=== PATIENT | female | born 1960 | race Caucasian/White ===

== ENCOUNTER → 2017-01-16 | Day surgery (SDC) | payer OTHER ==
[~2017-01-16] MED LIST: ACETAMINOPHEN 1000 MG/100 ML VIAL IV ONE; ALBU1AER INH; BENZ100 PO; EPINEPHrine HCL (1:1000) 1 MG/ML VIAL ONE; KETOROLAC TROMETHAMINE 30 MG/ML (IVP) VIAL ONE; LIDOCAINE HCL 1% PF 30 ML VIAL ONE; MEPERIDINE HCL 25 MG/ML VIAL ONE; MIDAZOLAM HCL 2 MG/2 ML VIAL ONE; MORPHINE SULFATE 4 MG/ML INJ ONE; ONDANSETRON HCL 4 MG/2 ML VIAL IV PUSH ONE; PRED20 PO; PROPOFOL 200 MG/20 ML AMP IV ONE; SODIUM CHLOR 0.9% 250 ML BAG IV ONE; VANCOMYCIN 500 MG VIAL ONE; ZITH250T PO
--- NOTE | 2017-01-16 10:56 | TN ---
cc: CHUY MICHAELS M.D. DATE OF SURGERY: 01/16/2017 PREOPERATIVE DIAGNOSIS Lipodystrophy of torso. POSTOPERATIVE DIAGNOSIS Lipodystrophy of torso. PROCEDURE Slim lipo. SURGEON Chuy Michaels MD ANESTHESIA LMA general. ESTIMATED BLOOD LOSS Minimal. COMPLICATIONS None. I&O'S 2380 in, 2450 out, total energy 60,000 joules per square centimeters. PROCEDURE She was properly consented, marked, anesthetized. The skin was sterilized with Betadine solution and utilizing tulip draping system sterile draping was applied. Puncture wounds were done utilizing 11 blade and tumescent fluid was infiltrated. ___ was as follows. In 1000 ccs of normal saline 30 ccs of 1% lidocaine plain was mixed with 1 cc of epinephrine 1:1000. After proper tumescent the energy was delivered 2020 for a total of 60,000 joules, of those 40,000 was in anterior abdomen, 10,000 for flanks and back. Suction food and beverage assistant was carried out utilizing ___ reciprocating cannula system a 3.5 mm ___ with 2.5 mm cannula. Each and every one of the puncture wounds were closed utilizing 5-0 Chromic suture and Steri-Strips applied and abdominal binder was applied thereafter. Overall, the patient tolerated the procedure well. She was awakened, extubated and transferred back to postoperative care in stable condition. No complications were appreciated. The patient tolerated the procedure well. MD JOHNNY Anderson/CARLOZ /10:21 AM /10:34 AM KATHRYN
--- NOTE | 2017-01-16 11:46 | TH ---
cc: ATIYA RINGO Date: 01/16/2017 DATE OF 1960 PROCEDURE TO BE PERFORMED Slim lipo to the torso. HISTORY OF PRESENT ILLNESS A 56-year-old female who wishes body contouring. She is a healthy individual. She did have a sinus surgery in the past. Otherwise, takes no medications. ALLERGIES She is allergic to penicillin. HABITS Her habits are bening. REVIEW OF SYSTEMS Other than the patient needing reading glasses for sight correction and has no evidence of other problems. PHYSICAL EXAMINATION CONSTITUTIONAL: General appearance. The patient is a well-developed female in no acute distress. Body habitus is within normal limits. There appear to be no deformities. Appears to have attention to grooming. HEENT: Eyes Conjunctivae and lids are within normal anatomical limits. The pupils are reactive to light and accommodation, size, and symmetry. There is no evidence of exudate, hemorrhage, or vessel change. Ears, mouth, nose, and throat The external inspection of the ears and nose fails to demonstrate any pathology, scars, lesions, or masses. Nasal mucosa, septum, and turbinates appear to be well hydrated as well as the lips and gums. No evidence of masses in the hypopharynx or submental area. RESPIRATORY: The patient shows no evidence of intercostal refractions. Otherwise, lungs are clear to auscultation without any abnormal sounds or rubs. CARDIOVASCULAR: The patient has a normal heart rate and rhythm. There is no evidence of noticed carotid bruits. Femoral pulses and pedal pulses in extremities are also within normal limits. GASTROINTESTINAL/ABDOMEN: Soft with no evidence of masses or tenderness. Unable to palpate the liver or spleen. No evidence of hernia. MUSCULOSKELETAL: Appears to be reasonable range of motion on the head, neck, spine, ribs, pelvis, right upper extremity, left upper extremity, right lower extremity, and left lower extremity. The muscle strength and tone appears to be equal and within accepted limits. SKIN: There is no rashes, lesions, or ulcers on the trunk, back, and extremities. NEUROLOGICAL: Examination is grossly normal. PSYCHIATRIC: The patient appears to have good orientation of time, place, and person. Does not appear to have any mood effects of depression, anxiety, or agitation. DIRECTED EXAMINATION: Areas of lipodystrophy were noted on the upper/lower back, flanks and upper/lower abdomen. PLAN Slim lipoma under anesthesia. The procedure risks and complications discussed with the patient. MD JOHNNY Anderson/JAYME /3:45 PM /11:44 AM
== END | disposition home or self-care (01) ==
LOC: ESDC 07:42
PROVIDERS: ATTEND Plastic Surgery
DX: Z41.1 Encounter for cosmetic surgery (principal)
CPT/HCPCS: 00300; 00400; 15877; J0131; J0171; J1885; J2175; J2250; J2270; J2405; J3010; J3370; J7050